=== PATIENT | female | born 1960 | race Caucasian/White ===

== ENCOUNTER 2021-01-31 08:25 | Outpatient (CLI) | payer OTHER, SELFPAY ==
--- NOTE | ~2021-01-31 | MM_ITS ---
EXAMINATION: MM screening sharifa BI w breezy HISTORY: Screening TECHNIQUE: Craniocaudal and mediolateral oblique 3-D tomosynthesis images were obtained and synthetic 2-D images were generated. CAD analysis was submitted and interpreted. COMPARISON: 10/02/2019 BREAST PARENCHYMAL COMPOSITION: The breasts are heterogeneously dense, which may obscure small masses . FINDINGS: There is no evidence of suspicious mass, calcification, or architectural distortion to sugg est malignancy in either breast. There has been no suspicious interval change. IMPRESSION: 1. No mammographic evidence of malignancy. 2. Recommend routine screening mammography in one year. BI-RADS Category 1: Negative Reviewed, dictated and finalized at location A.
[2021-01-31 08:43] LABS: Eosinophils Absolute Auto 0.09 K/mm3 (0.02-0.50); Eosinophils Percent Auto 1.9 % (1.0-6.0); Hematocrit 41.8 % (35.0-49.0); Hemoglobin 13.7 g/dL (12.0-15.0); Immature Granulocyte Absolute 0.01 K/mm3 (0.00-0.00); Immature Granulocyte Percent A 0.2 % (0.0-0.0); Lymphocytes Absolute Auto 1.63 K/mm3 (1.10-4.50); Lymphocytes Percent Auto 34.8 % (18.0-42.0); Mean Corpuscular HGB Conc 32.8 g/dL (32.0-36.0); Mean Corpuscular Hemoglobin 30.1 pg (27.0-31.0); Mean Corpuscular Volume 91.9 fL (78.0-102.0); Mean Platelet Volume 9.9 fl (9.2-11.8); Monocytes Absolute Auto 0.47 K/mm3 (0.10-0.90); Neutrophils Absolute Auto 2.5 K/mm3 (1.7-7.2); Neutrophils Percent Auto 53.1 % (50.0-70.0); Platelet Count Result 189 K/mm3 (150-420); Red Blood Count 4.55 M/mm3 (4.20-5.40); Red Cell Distribution Width 12.6 % (11.6-14.4); White Blood Count 4.7 K/mm3 (4.8-10.8)
[2021-01-31 08:59] LABS: Add Urine Microscopic? NO; Appearance Urine Clear (Clear); Bilirubin Urine Negative (Negative); Blood Urine Negative (Negative); Color Urine Yellow (Yellow); Glucose Urine UA Negative (Negative); Ketones Urine Negative (Negative); Leukocyte Esterase Ur Negative (Negative); Nitrate Urine Negative (Negative); Protein Urine Negative (Negative); Specific Grav Ur 1.025 (1.010-1.020); Urobilinogen Urine 0.2 mg/dL (0.2-1.0); pH Urine 5.5 (5.0-8.0)
[2021-01-31 09:20] LABS: Alanine Aminotransferase 34 U/L (14-59); Albumin Level 3.9 g/dL (3.4-5.0); Alkaline Phosphatase 75 U/L (46-116); Anion Gap 7 mmol/L (8-16); Aspartate Amino Transferase 36 U/L (15-37); Bilirubin,Total 0.6 mg/dL (0.00-1.00); Blood Urea Nitrogen 19 mg/dL (7-18); Calcium 8.6 mg/dL (8.5-10.1); Carbon Dioxide 31 mmol/L (21-32); Chloride 104 mmol/L (98-108); Cholesterol 183 mg/dL (0-200); Estimated Glomerular Filt Rate > 60; Glucose 90 mg/dL (70-99); HDL Direct 59 mg/dL (40-60); LDL Cholesterol Calculated 108 mg/dL (<130); Osmolality Calculated 296 mOsm/kg (285-295); Sodium 142 mmol/L (136-145); Thyroid Stimulating Hormone 0.99 uIU/mL (0.36-3.74); Total Protein 6.8 g/dL (6.4-8.2); Triglycerides 82 mg/dL (0-150)
[2021-02-02 11:58] LABS: Vitamin D 25 Hydroxy 51 ng/mL (30-100)
== END 2021-01-31 08:26 | disposition home or self-care (01) ==
LOC: CHSIMG 08:31
PROVIDERS: PCP Internal Medicine
DX: Z12.31 Encounter for screening mammogram for malignant neoplasm of breast (principal); Z00.00 Encounter for general adult medical examination without abnormal findings; E55.9 Vitamin D deficiency, unspecified
CPT/HCPCS: 36415; 77063; 77067; 80053; 80061; 81003; 82306; 84439; 84443; 85025

== ENCOUNTER 2021-02-16 08:23 | Outpatient (CLI) | payer OTHER, SELFPAY ==
--- NOTE | ~2021-02-16 | DEXA_ITS ---
Bone Density Report Name: Dianne Rodriguez Age: 60 Sex: Female Ethnicity: White Date of : 1960 Indication: postmenopausal; screening for osteoporosis; parental hip fracture; height loss; prior fracture; Referring Provider: Regine Mcconnell Study: Bone densitometry was performed. Exam Date: February 16, 2021 Accession number: [id number] Bone Density: Region BMD T-score Z-score Classification AP Spine(L1-L4) 0.790 -2.3 -1.0 Osteopenia Femoral Neck (Right) 0.636 -1.9 -0.7 Osteopenia Total Hip (Right) 0.774 -1.4 -0.5 Osteopenia World Health Organization criteria for BMD impression classify patients as: Normal (T-score at or above -1.0), Osteopenia (T-score between -1.0 and -2.5), or Osteoporosis (T-score at or below -2.5). 10-year Fracture Risk: FRAX not reported because: Prior hip or vertebral fracture Clinical Information Provided by Patient: Have had a previous hip or vertebral fracture Has had a low trauma fracture Parent has had a hip fracture Has used the following medications: Fosamax (i.e. alendronate), Vitamin D, Calcium Patient maximum height was 70 Menopause Age: 56 Drinks caffeinated beverages Onset of menses at age 16 Number of children 5 Impression: The patient has low bone mass, based on the Total Spine T-score. The patient has risk factors, including: parental hip fracture, previous fracture. Discussion: INCREASED RISK OF FRACTURE DUE TO HISTORY OF FRACTURE. The patient's previous fracture puts the patient at high risk of a future fracture. In untreated patients, the risk of osteoporotic fracture increases approximately two-fold for each 1.0 SD decrease in T-score. Low bone density is not the only risk factor for fracture; also consider factors such as patient's age, frailty or poor health, risk of falling, risk of injury, previous osteoporotic fracture, family history of osteoporosis, cigarette smoking, low body weight, etc. Not everyone with a low trauma fracture has osteoporosis; osteomalacia and other metabolic bone disorders should also be considered. Patients who have osteoporosis should be evaluated for specific diseases and conditions (secondary causes) that may cause or contribute to bone loss and fracture risk. National Osteoporosis Foundation (NOF) recommends pharmacologic intervention for patients with a prior hip or vertebral fracture regardless of BMD T-score. The patient should follow a healthful lifestyle (good nutrition with adequate calcium and vitamin D, and appropriate weight-bearing exercise). Follow-Up: Consider a repeat BMD and Vertebral Fracture Assessment (VFA) exam in 2 years or sooner if medically necessary, to reassess this patient's status. Reported by: Dr. Bryant Bergman on 02/16/2021 8:43:00 AM. Reviewed, dictated and finalized at location A. [facility]
== END 2021-02-16 08:24 | disposition home or self-care (01) ==
LOC: CHSIMG 08:24
PROVIDERS: PCP Internal Medicine; Visit Provider Internal Medicine
DX: M81.0 Age-related osteoporosis without current pathological fracture (principal)
CPT/HCPCS: 77080

== ENCOUNTER → 2021-02-20 00:26 | Outpatient (CLI) | payer OTHER, SELFPAY ==
[2021-02-20 19:28] LABS: SARS-CoV-2 RNA PCR Negative
== END ==
PROVIDERS: PCP Internal Medicine; Visit Provider Surgery
DX: Z01.812 Encounter for preprocedural laboratory examination (principal); Z20.822 Contact with and (suspected) exposure to COVID-19
CPT/HCPCS: C9803; U0003; U0005

== ENCOUNTER 2021-02-23 00:49 | Day surgery (SDC) | payer OTHER, SELFPAY ==
[2021-02-15 14:25] VITALS: BMI 20.5
[2021-02-23 08:07] VITALS: BP 116/75; PULSE 64; RESP 18; TEMP 37.1; O2SAT 99; BMI 20.2
[2021-02-23] MEDS: LACTATED RINGERS 1,000 ML 150 ML IV CONT (08:18)
--- NOTE | 2021-02-23 09:05 | WPDANESEPPF ---
Anes - Initial Pre Proc Eval Procedure: Operation Date: 02/23/21 09:00 Proposed Procedures p Screening Colonoscopy - Miguel Shane DO Date/Time: 02/23/21 09:05 Surgeon: Miguel Shane DO Pre Op Diagnosis: previous colon polyps Patient Data Age: 60 Gender: F Height: 5 ft 9 in Weight: 62 kg Last Vital Signs Temp 98.8 F 02/23/21 08:07 Pulse 64 02/23/21 08:07 Resp 18 02/23/21 08:07 BP 116/75 02/23/21 08:07 Pulse Ox 99 02/23/21 08:07 Allergies Allergy/AdvReac Type Severity Reaction Status Date / Time iodine Allergy Intermediate Rash Verified 02/23/21 08:05 Home Medications Medication Instructions Recorded Confirmed Type Vitamin C 750 mg PO DAILY 02/15/21 02/23/21 History brimonidine-timolol [Combigan] 1 drp EACH EYE BID 02/15/21 02/23/21 History cetirizine [Zyrtec] 10 mg PO DAILY 02/15/21 02/23/21 History flaxseed oil 2,000 mg PO DAILY 02/15/21 02/23/21 History gabapentin 300 mg PO HS 02/15/21 02/23/21 History qepmnsbm-dppo-hjb7-C-jaskaran-bosw 1 tablet PO DAILY 02/15/21 02/23/21 History [Osteo Bi-Flex Triple Strength] latanoprost 1 drp EACH EYE HS 02/15/21 02/23/21 History wjeepzpyfagf-snp-qijp-FA-vit K 1 tablet PO DAILY 02/15/21 02/23/21 History [One Daily Women's] Patient hx anesthesia problems: none Family hx anesthesia problems: none PMFSH Social History Social History Smoking status: Never smoker Alcohol intake: current Drinks per week: 1 Substance use: never Substance use type: does not use Living arrangements: with family Spiritual care concerns: No Anes - Eval Final PreProcedure Day of Procedure 02/23/21 09:05 Patient weight: normal Heart: regular rate and rhythm Lungs: clear to auscultation Airway: Mallampati scale class II Neurological: alert and oriented Last oral intake: >/= 8 hours ASA classification: II Emergent: no Anesthetic plan: proceed Anesthesia type and monitoring: general GIVS and standard monitoring Informed Consent: The patient's anesthetic plan and its attendant risks and benefits were discussed with the patient/family/POA. Questions were solicited and answers provided to the satisfaction of the patient/family/POA.
--- NOTE | 2021-02-23 09:24 | PM.IMHP ---
H&P: HPI History of Present Illness Date/Time: 02/23/21 09:24 Chief Complaint: history of colon polyps Narrative: this is a 60-year-old woman who presents for colonoscopy. Her last colonoscopy was 6-8 years ago and polyps were removed at that time. She denies any change in bowel habits or hematochezia or melena. She has no family history of colon cancer. Review of Systems Review of Systems: All systems reviewed & are unremarkable except as noted in HPI and below Constitutional: Constitutional: Denies chills, Denies fever(s), Denies headache(s) and Denies weight loss Eyes: Eyes: Denies change in vision ENT: Denies dizziness, Denies headache(s), Denies neck mass and Denies throat swelling Cardiovascular: Cardiovascular: Denies chest pain, Denies lightheadedness and Denies dyspnea Respiratory: Respiratory: Denies cough, Denies dyspnea and Denies wheezing Gastrointestinal: Gastrointestinal: Denies abdominal pain, Denies change in bowel habits, Denies nausea and Denies vomiting Genitourinary: Genitourinary: Denies hematuria and Denies dysuria Musculoskeletal: Musculoskeletal: Reports as per HPI Integumentary/Breasts: Skin/Breast: Reports as per HPI Neurologic: Denies dizziness and Denies headache(s) Allergic/Immunologic: Allergic/Immunologic: Denies throat swelling and Denies wheezing PMFSH Social History Social History Smoking status: Never smoker Alcohol intake: current Drinks per week: 1 Substance use: never Substance use type: does not use Living arrangements: with family Spiritual care concerns: No Meds Home Medications and Allergies Home Medications Medication Instructions Recorded Confirmed Type Vitamin C 750 mg PO DAILY 02/15/21 02/23/21 History brimonidine-timolol [Combigan] 1 drp EACH EYE BID 02/15/21 02/23/21 History cetirizine [Zyrtec] 10 mg PO DAILY 02/15/21 02/23/21 History flaxseed oil 2,000 mg PO DAILY 02/15/21 02/23/21 History gabapentin 300 mg PO HS 02/15/21 02/23/21 History qclrcsxo-vxfq-kwh1-C-jaskaran-bosw 1 tablet PO DAILY 02/15/21 02/23/21 History [Osteo Bi-Flex Triple Strength] latanoprost 1 drp EACH EYE HS 02/15/21 02/23/21 History olexltistiyu-zud-dasr-FA-vit K 1 tablet PO DAILY 02/15/21 02/23/21 History [One Daily Women's] Allergies Allergy/AdvReac Type Severity Reaction Status Date / Time iodine Allergy Intermediate Rash Verified 02/23/21 08:05 Vital Signs Vital Signs - 24 hr 02/23/21 08:07 Temperature 37.1 C Pulse Rate 64 Respiratory Rate 18 Blood Pressure 116/75 Pulse Oximetry 99 Exam Const: General: no acute distress and alert Orientation/consciousness: patient oriented x3 HENMT: Head: normocephalic and atraumatic Ears: hearing grossly normal bilaterally General nose exam: Normal nares present Mouth: Yes Normal oral and palatal mucosa present Eyes: Periorbital: periorbital findings normal Sclera: sclerae normal EOM: EOMs intact bilaterally Neck: Neck: normal visual inspection, no lymphadenopathy and trachea midline Chest: Chest palpation & inspection: normal inspection of the chest Resp: Effort & Inspection: normal respiratory effort Auscultation: clear to auscultation bilaterally Cardio: Jugular venous distension: no JVD Rate: regular rate Rhythm: regular rhythm Heart sounds: S1 normal heart sound present and S2 normal heart sound present Peripheral pulses: Peripheral pulses 2+ throughout GI: Inspection: normal to inspection GI Palp: Yes Soft to palpation, No Tenderness to palpation present (GI), No Guarding due to palpation present (GI) and No Rebound tenderness present Percussion: Yes normal to percussion Auscultation: normal bowel sounds : General: Yes no CVA tenderness Back/Spine/Pelvis: Back: no CVA tenderness Neuro: General: patient oriented x3, no focal motor deficits and CN's II-XI intact bilaterally Cognition (Neuro): normal cognition Speech: normal speech Motor exam (neuro): 5/5 motor strength pre
[2021-02-23 09:58] VITALS: BP 103/71; PULSE 68; RESP 20; O2SAT 100
[2021-02-23 10:08] VITALS: BP 107/69; PULSE 58; RESP 18; O2SAT 98
[2021-02-23 10:18] VITALS: BP 113/71; PULSE 56; RESP 16; O2SAT 99
== END 2021-02-23 10:35 | disposition home or self-care (01) ==
PROVIDERS: PCP Internal Medicine; Visit Provider Surgery
PROC: 0DJD8ZZ Inspection of Lower Intestinal Tract, Via Natural or Artificial Opening Endoscopic (ICD-10-PCS; CPT 45378; principal; 2021-02-23 09:00)
DX: Z12.11 Encounter for screening for malignant neoplasm of colon (principal); Z86.010 Personal history of colon polyps
CPT/HCPCS: 45378; J2704; J7120

== ENCOUNTER 2021-11-13 09:47 | Outpatient (CLI) | payer OTHER, SELFPAY ==
--- NOTE | ~2021-11-13 | XR_ITS ---
EXAMINATION: XR heel LT min 2V DATE: 11/13/2021 10:05 INDICATION: Left heel injury and pain. TECHNIQUE: 2 views of left calcaneus were obtained. COMPARISON: None. FINDINGS: Bone alignment is normal. No fracture. Joint spaces are normal. There are enthesophytes at the posterior and plantar aspects of calcaneal tuberosity. IMPRESSION: 1. No fracture. Reviewed, dictated and finalized at location A. [facility] IMPRESSION: 1. No fracture.
== END 2021-11-13 09:48 | disposition home or self-care (01) ==
LOC: CHSIMG 09:48
PROVIDERS: PCP Internal Medicine; Visit Provider Internal Medicine
DX: M79.672 Pain in left foot (principal)
CPT/HCPCS: 73650

== ENCOUNTER 2021-11-20 08:21 | Outpatient (CLI) | payer OTHER, SELFPAY ==
--- NOTE | ~2021-11-20 | XR_ITS ---
XR foot LT min 3V DATE: 11/20/2021 08:52 INDICATION: Left foot pain. No known injury TECHNIQUE: 4 standing views COMPARISON: None FINDINGS: There is chronic deformity of the tuft of the distal phalanx of the great toe, possibly due to remote injury. No fracture or dislocation, periosteal reaction or bone destruction is detected. Plantar calcaneal enthesopathy; no associated periostitis or erosive change. IMPRESSION: Plantar calcaneal enthesopathy Reviewed, dictated and finalized at location A. [facility]
== END 2021-11-20 08:22 | disposition home or self-care (01) ==
LOC: CHSIMG 08:23
PROVIDERS: PCP Internal Medicine; Visit Provider Orthopaedic Surgery
DX: M79.672 Pain in left foot (principal)
CPT/HCPCS: 73630

== ENCOUNTER 2022-03-23 08:25 | Outpatient (CLI) | payer OTHER, SELFPAY ==
--- NOTE | ~2022-03-23 | MM_ITS ---
EXAMINATION: MM screening sharifa BI w breezy HISTORY: Screening mammogram TECHNIQUE: Craniocaudal and mediolateral oblique 3-D tomosynthesis images were obtained and synthetic 2-D images were generated. CAD analysis was submitted and interpreted. COMPARISON: 01/31/2021, 10/02/2019 bilateral screening mammogram examinations BREAST PARENCHYMAL COMPOSITION: The breasts are heterogeneously dense, which may obscure small masses . FINDINGS: There is no evidence of suspicious mass, calcification, or architectural distortion to sugg est malignancy in either breast. There has been no suspicious interval change. IMPRESSION: 1. No mammographic evidence of malignancy. 2. Recommend routine screening mammography in one year. BI-RADS Category 1: Negative Reviewed, dictated and finalized at location A.
== END 2022-03-23 08:26 | disposition home or self-care (01) ==
LOC: CHSIMG 08:28
PROVIDERS: PCP Internal Medicine
DX: Z12.31 Encounter for screening mammogram for malignant neoplasm of breast (principal)
CPT/HCPCS: 77063; 77067

== ENCOUNTER 2023-02-13 07:44 | Outpatient (CLI) | payer OTHER, SELFPAY ==
--- NOTE | ~2023-02-13 | US_ITS ---
Limited Abdominal Sonogram: Real-time sonographic imaging of the right upper quadrant was performed. Clinical History: Hepatic cyst COMPARISON: 10/02/2019 Findings: There is a 2.6 x 2.0 x 2.6 cm subtle hyperechoic mass in the right hepatic lobe. No other h epatic abnormality seen. Main portal vein demonstrates normal direction of flow. The gallbladder is w ell distended, and appears normal with no evidence of gallstone or wall thickening. The common bile d uct measures 5 mm. The visualized pancreas, aorta, and IVC are unremarkable. Impression: 2.6 cm subtle hypoechoic mass in the right hepatic lobe. More simple appearing cyst seen on prior ult rasound is no longer visualized. This lesion is indeterminate. Pre and postcontrast MR recommended to further evaluate. Reviewed, dictated and finalized at [facility]. Impression: 2.6 cm subtle hypoechoic mass in the right hepatic lobe. More simple appearing cyst seen on prior ultrasound is no longer visualized. This lesion is indetermi michael. Pre and postcontrast MR recommended to further evaluate.
== END 2023-02-13 07:45 | disposition home or self-care (01) ==
LOC: CHSIMG 07:46
PROVIDERS: PCP Internal Medicine; Visit Provider Internal Medicine
DX: K76.89 Other specified diseases of liver (principal)
CPT/HCPCS: 76705

== ENCOUNTER 2023-04-09 12:24 | Outpatient (CLI) | payer OTHER, SELFPAY ==
--- NOTE | ~2023-04-09 | DEXA_ITS ---
Bone Density Report Name: IVET UMAÑA Age: 62 Sex: Female Ethnicity: White Date of : 1960 Indication: postmenopausal; screening for osteoporosis; parental hip fracture; height loss; prior fracture; Referring Provider: Regine Mcconnell Study: Bone densitometry was performed. Exam Date: April 09, 2023 Accession number: [id number] Bone Density: Region BMD T-score Z-score Classification AP Spine(L1-L4) 0.784 -2.4 -0.9 Osteopenia Femoral Neck (Right) 0.595 -2.3 -0.9 Osteopenia Total Hip (Right) 0.758 -1.5 -0.5 Osteopenia World Health Organization criteria for BMD impression classify patients as: Normal (T-score at or above -1.0), Osteopenia (T-score between -1.0 and -2.5), or Osteoporosis (T-score at or below -2.5). 10-year Fracture Risk: FRAX not reported because: Prior hip or vertebral fracture Clinical Information Provided by Patient: Have had a previous hip or vertebral fracture Has had a low trauma fracture Parent has had a hip fracture Has used the following medications: Fosamax (i.e. alendronate), Vitamin D, Calcium Patient maximum height was 69 Menopause Age: 56 Drinks caffeinated beverages Onset of menses at age 16 Number of children 5 Impression: The patient has low bone mass, based on the Total Spine T-score. The patient has risk factors, including: parental hip fracture, previous fracture. Discussion: INCREASED RISK OF FRACTURE DUE TO HISTORY OF FRACTURE. The patient's previous fracture puts the patient at high risk of a future fracture. In untreated patients, the risk of osteoporotic fracture increases approximately two-fold for each 1.0 SD decrease in T-score. Low bone density is not the only risk factor for fracture; also consider factors such as patient's age, frailty or poor health, risk of falling, risk of injury, previous osteoporotic fracture, family history of osteoporosis, cigarette smoking, low body weight, etc. Not everyone with a low trauma fracture has osteoporosis; osteomalacia and other metabolic bone disorders should also be considered. Patients who have osteoporosis should be evaluated for specific diseases and conditions (secondary causes) that may cause or contribute to bone loss and fracture risk. National Osteoporosis Foundation (NOF) recommends pharmacologic intervention for patients with a prior hip or vertebral fracture regardless of BMD T-score. The patient should follow a healthful lifestyle (good nutrition with adequate calcium and vitamin D, and appropriate weight-bearing exercise). Follow-Up: Consider a repeat BMD and Vertebral Fracture Assessment (VFA) exam in 2 years or sooner if medically necessary, to reassess this patient's status. Reported by: Dr. Bryant Bergman on 04/09/2023 1:02:00 PM. Reviewed, dictated and finalized at location A.
--- NOTE | ~2023-04-09 | MM_ITS ---
EXAMINATION: MM screening [facility] BI w breezy HISTORY: Screening mammogram TECHNIQUE: Craniocaudal and mediolateral oblique 3-D tomosynthesis images were obtained and synthetic 2-D images were generated. CAD analysis was submitted and interpreted. COMPARISON: 03/23/2022, 01/31/2021, 10/02/2019 BREAST PARENCHYMAL COMPOSITION: The breasts are heterogeneously dense, which may obscure small masses . FINDINGS: No suspicious mass, calcification, or architectural distortion are identified in either luis enrique ast to suggest malignancy. There has been no suspicious interval change. IMPRESSION: 1. No mammographic evidence of malignancy. 2. Recommend routine screening mammography in one year. BI-RADS Category 1: Negative Reviewed, dictated and finalized at location A.
== END 2023-04-09 12:25 | disposition home or self-care (01) ==
LOC: CHSIMG 12:26
PROVIDERS: PCP Internal Medicine; Visit Provider Internal Medicine
DX: Z12.31 Encounter for screening mammogram for malignant neoplasm of breast (principal); Z78.0 Asymptomatic menopausal state; M85.89 Other specified disorders of bone density and structure, multiple sites
CPT/HCPCS: 77063; 77067; 77080

== ENCOUNTER 2023-05-07 08:25 | Outpatient (CLI) | payer OTHER, SELFPAY ==
[2023-05-07] MEDS: ZOLEDRONIC ACID 5 MG/100 ML 100 ML 400 MG IVPB (08:35)
[2023-05-07 08:43] VITALS: BP 105/65; PULSE 80; RESP 14; TEMP 36.8; O2SAT 98
[2023-05-07 08:44] VITALS: BMI 20.8
--- NOTE | 2023-05-07 08:50 | PC.NURSE ---
Patient here for IV Reclast. Education given. All concerns answered. IV Reclast administered. SEE MAR. Tolerated well. Safe exit of hospital per ambulatory/self.
== END 2023-05-07 08:26 | disposition home or self-care (01) ==
LOC: CHSTREATRM 08:27
PROVIDERS: PCP Internal Medicine; Visit Provider Internal Medicine
DX: M81.0 Age-related osteoporosis without current pathological fracture (principal)
CPT/HCPCS: 96374; J3489

== ENCOUNTER 2023-06-12 11:37 | Outpatient (CLI) | payer OTHER, SELFPAY ==
--- NOTE | ~2023-06-12 | XR_ITS ---
Lumbosacral Spine: AP and lateral views Clinical History: Pain Findings: The normal lordotic curve is maintained. The vertebral bodies and posterior elements are i ntact. The intervertebral disc spaces are preserved. There is moderate facet arthropathy at and L3-L 4, L4-L5, L5-S1. The sacroiliac joints are normally outlined. Impression: Facet arthropathy at the lower lumbar spine, as detailed above. Reviewed, dictated and finalized at location M. Impression: Facet arthropathy at the lower lumbar spine, as detailed above.
--- NOTE | ~2023-06-12 | XR_ITS ---
AP view of the pelvis and AP and lateral views of the lateral hips Clinical history: Pain Findings: There are fractures of the left superior and inferior pubic rami. 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 No hardware convocation evident. Right hip joint and SI joints are intact. Soft tissues are un remarkable. Impression: Fractures of the left superior and inferior pubic rami. 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 Reviewed, dictated and finalized at location . Impression: Fractures of the left superior and inferior pubic rami. 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
--- NOTE | ~2023-06-12 | US_ITS ---
EXAMINATION: US venous doppler LE RT DATE: 06/12/2023 12:27 INDICATION: Right lower limb swelling TECHNIQUE: Grayscale ultrasound images without and with compression and Doppler ultrasound images of the right lower extremity veins were obtained. COMPARISON: None. FINDINGS: The visualized portions of right common femoral vein, profunda (deep) femoral vein, femoral vein, pop liteal vein, peroneal trunk, posterior tibial veins, peroneal veins, gastrocnemius vein and greater s aphenous vein outflow are patent. IMPRESSION: 1. No deep venous thrombosis in the right lower limb. Reviewed, dictated and finalized at location A.
== END 2023-06-12 11:38 | disposition home or self-care (01) ==
LOC: CHSIMG 11:40
PROVIDERS: PCP Internal Medicine; Visit Provider Internal Medicine
DX: S79.912A Unspecified injury of left hip, initial encounter (principal); M79.89 Other specified soft tissue disorders; M12.88 Other specific arthropathies, not elsewhere classified, other specified site; S32.592A Other specified fracture of left pubis, initial encounter for closed fracture; Z96.642 Presence of left artificial hip joint
CPT/HCPCS: 72100; 73521; 93971

== ENCOUNTER 2023-08-02 13:56 | Outpatient (CLI) | payer OTHER, SELFPAY ==
[2023-08-08 12:33] LABS: Vitamin D 25 Hydroxy 52 ng/mL (30-100)
== END 2023-08-02 13:57 | disposition home or self-care (01) ==
LOC: CHSLAB 13:57
PROVIDERS: PCP Internal Medicine; Visit Provider Orthopaedic Surgery
DX: E55.9 Vitamin D deficiency, unspecified (principal)
CPT/HCPCS: 36415; 82306

== ENCOUNTER 2023-10-18 07:59 | Outpatient (RCR) | payer OTHER, SELFPAY ==
--- NOTE | 2023-10-18 08:56 | OPREHPOC ---
Outpatient Therapy Plan of Care This is a Multidisciplinary Plan of Care that may contain components documented by all disciplines (PT, OT, and ST.) PT Problem 1 PT Problem #1 Knowledge Deficit PT Goal 1 Goal 1. independent and compliant with HEP Target Visit 4 PT Problem 2 PT Problem #2 Pain PT Goal 1 Goal 1. pain to decrease to 4/10 or less in the last week Target Visit 8 PT Problem 3 PT Problem #3 Impaired Strength PT Goal 1 Goal 1. 3/5 or better L hip strength 2. 3+/5 or better R hip strength 3. 4+/5 or better bilateral ankle DF 4. 4+/5 or better L knee strength Target Visit 8 PT Problem 4 PT Problem #4 Impaired Gait PT Goal 1 Goal 1. patient to ambulate with step through mechanics of the bilateral LE's with equal step/stride length and heel contact using cane. 2. patient to ambulate up steps reciprocally with 1 hand rail. Target Visit 8
--- NOTE | 2023-10-18 08:56 | PTOPEVAL1 ---
Assessment and note entered by JT File, PT Evaluation Information Assessment Status Evaluation Diagnosis L pubic ramus fracture Onset 06/09/23 Subjective Information patient reports she fell and fractured the pelvis on 06/09/23. she reports last week she was released to begin therapy, and was able to get rid of her walker. she reports this is her first week with the cane. she reports her fracture was in 4 places, and she had difficulty healing. she reports she has difficulty getting in and out of bed, rolling over in bed, getting in and out of a car, and walking. she reports she will be struggling to stand/walk by the afternoon/evening. she reports prior to her fall she was able to run on a treadmill, ride a bike, go to the the gym. she reports she would like to get back to as many of her prior level activities as before her fall. she reports she is retired. Reported Pain Level Pain Score 0: Self Report Assessment PT Clinical Summary mrs. whitehead is a 63 yo woman who presents to skilled PT for rehab following fall and fracture of the L pubic ramus. she presents today with deficits in strength (especially the L hip), abnormal gait mechanics, and deficits in endurance with functional activities. she would benefit from continued skilled PT to improve her objective /functional deficits and progress towards return to independent walking and other functional activities. Plan of Care Interventions Gait Training,Neuro Re-education,Patient/Caregiver Educati,Therapeutic Activities,Therapeutic Exercise PT Services Indicated Yes Treatment Frequency and 2x weekly for 8 visits Duration These treatments will address the objective and functional deficits as defined above. The patient will be advanced safely and appropriately in order for the patient to progress towards his/her prior level of function. Additional exercises will be introduced and as well as a comprehensive home exercise program upon discharge, if needed, ?to ensure carryover of functional gains achieved in the clinic. This treatment plan has been reviewed and agreement upon by the patient.
--- NOTE | 2023-11-14 11:03 | OPREHPOC ---
Outpatient Therapy Plan of Care This is a Multidisciplinary Plan of Care that may contain components documented by all disciplines (PT, OT, and ST.) PT Problem 1 PT Problem #1 Knowledge Deficit PT Goal 1 Goal 1. independent and compliant with HEP Target Visit 4 Progress Met PT Problem 2 PT Problem #2 Pain PT Goal 1 Goal 1. pain to decrease to 4/10 or less in the last week Target Visit 16 Progress Not Met Comment continue PT Problem 3 PT Problem #3 Impaired Strength PT Goal 1 Goal 1. 3/5 or better L hip strength 2. 3+/5 or better R hip strength 3. 4+/5 or better bilateral ankle DF 4. 4+/5 or better L knee strength Target Visit 16 Progress Partially Met Comment continue PT Problem 4 PT Problem #4 Impaired Gait PT Goal 1 Goal 1. patient to ambulate with step through mechanics of the bilateral LE's with equal step/stride length and heel contact using cane. 2. patient to ambulate up steps reciprocally with 1 hand rail. 3. patient to ambulate 600ft or more in 6 minute walk test with rest Target Visit 16 Progress Partially Met Comment continue
--- NOTE | 2023-11-14 11:04 | PTOPREEVAL ---
Assessment and note entered by JT File, PT Evaluation Information Assessment Status Re-evaluation Diagnosis L pubic ramus fracture Onset 06/09/23 Subjective Information patient reports she feels Good today. she reports she has no pain in the L hip/pelvis today. she reports she has seen the MD who thinks the fracutred has completed its heeling. she arrives to therapy with orders from her MD to continue PT for strengthening and cane use for ambulation. she reports over the weekend her pain was flared up from being up on her feet and active with the holidays. Reported Pain Level Pain Score 0: Self Report Assessment PT Clinical Summary mrs. whitehead presents to skilled PT for her 8th skilled PT visit for weakness following L pubic ramus fracture. during her time in therapy she has work on exercises/activities to increased LE strength and ambulation endurance/mechanics. she displays improved LE strength from initial evaluation, but continued weakness overall of the bilateral LE and core. she would benefit from continued skilled PT to further improve/progress her LE strength, core strength, and ambulation mechanics/endurance. Plan of Care Interventions Gait Training,Neuro Re-education,Patient/Caregiver Educati,Therapeutic Activities,Therapeutic Exercise PT Services Indicated Yes Treatment Frequency and continue skilled PT 2x weekly for 8 more visits Duration These treatments will address the objective and functional deficits as defined above. The patient will be advanced safely and appropriately in order for the patient to progress towards his/her prior level of function. Additional exercises will be introduced and as well as a comprehensive home exercise program upon discharge, if needed, ?to ensure carryover of functional gains achieved in the clinic. This treatment plan has been reviewed and agreement upon by the patient.
--- NOTE | 2023-12-09 08:57 | PCPTNOTE ---
Mrs. Rodriguez cancelled her appointment on this date due to inclement weather. Faustino Pond, MPT
--- NOTE | 2023-12-11 10:32 | OPREHPOC ---
Outpatient Therapy Plan of Care This is a Multidisciplinary Plan of Care that may contain components documented by all disciplines (PT, OT, and ST.) PT Problem 1 PT Problem #1 Knowledge Deficit PT Goal 1 Goal 1. independent and compliant with HEP Target Visit 4 Progress Met PT Problem 2 PT Problem #2 Pain PT Goal 1 Goal 1. pain to decrease to 4/10 or less in the last week Target Visit 20 Progress Not Met Comment continue PT Problem 3 PT Problem #3 Impaired Strength PT Goal 1 Goal 1. 3/5 or better L hip strength. met 2. 3+/5 or better R hip strength. met 3. 4+/5 or better bilateral ankle DF. met 4. 4+/5 or better L knee strength. met Target Visit 16 Progress Met Comment . PT Goal 2 Goal 1. 4/5 bilateral hip strength overall 2. 5/5 bilateral knee strength overall 3. 5/5 bilateral ankle strength overall Target Visit 20 PT Problem 4 PT Problem #4 Impaired Gait PT Goal 1 Goal 1. patient to ambulate with step through mechanics of the bilateral LE's with equal step/stride length and heel contact using cane. met 2. patient to ambulate up steps reciprocally with 1 hand rail. met 3. patient to ambulate 600ft or more in 6 minute walk test with rest. met Target Visit 16 Progress Met Comment . PT Goal 2 Goal 1. patient to ambulate 900ft or more in 6m inute walk test Target Visit 20 PT Problem 5 PT Problem #5 Impaired Functional Mobil PT Goal 1 Goal 1. LEFS to display less than 30% functional decline Target Visit 20
--- NOTE | 2023-12-11 10:32 | PTOPREEVAL ---
Assessment and note entered by JT File, PT Evaluation Information Assessment Status Re-evaluation Diagnosis L pubic ramus fracture Onset 06/09/23 Subjective Information patient reports she feels good today. however, she still gets increased pain in the pelvis with increased standing and walking. she reports she went to [facility] the other day and her pain did reach a 7/10. she reports she returns to the MD for follow up this saturday. Reported Pain Level Pain Score 2: Self Report Assessment PT Clinical Summary mrs. whitehead presents to skilled PT for her 15th skilled therapy visit this date. she displays progress towards and achievement of several goals for skilled PT this date. she continues to have pain in the pelvis with increased activities of standing/walking longer times/distances. she would benefit from continued skilled PT to address her remaining strength and endurance deficits to return to prior level functional activities and quality of life. Plan of Care Interventions Gait Training,Neuro Re-education,Patient/Caregiver Educati,Therapeutic Activities,Therapeutic Exercise PT Services Indicated Yes Treatment Frequency and continue skilled PT for 1 more visits on current Duration poc, and then 1x weekly for 4 more visits (5 total additional visits from today). These treatments will address the objective and functional deficits as defined above. The patient will be advanced safely and appropriately in order for the patient to progress towards his/her prior level of function. Additional exercises will be introduced and as well as a comprehensive home exercise program upon discharge, if needed, ?to ensure carryover of functional gains achieved in the clinic. This treatment plan has been reviewed and agreement upon by the patient.
--- NOTE | 2024-01-07 09:19 | OPREHPOC ---
Outpatient Therapy Plan of Care This is a Multidisciplinary Plan of Care that may contain components documented by all disciplines (PT, OT, and ST.) PT Problem 1 PT Problem #1 Knowledge Deficit PT Goal 1 Goal 1. independent and compliant with HEP Target Visit 4 Progress Met PT Problem 2 PT Problem #2 Pain PT Goal 1 Goal 1. pain to decrease to 4/10 or less in the last week Target Visit 20 Progress Not Met Comment 5/10 PT Problem 3 PT Problem #3 Impaired Strength PT Goal 1 Goal 1. 3/5 or better L hip strength. met 2. 3+/5 or better R hip strength. met 3. 4+/5 or better bilateral ankle DF. met 4. 4+/5 or better L knee strength. met Target Visit 16 Progress Met Comment . PT Goal 2 Goal 1. 4/5 bilateral hip strength overall 2. 5/5 bilateral knee strength overall 3. 5/5 bilateral ankle strength overall Target Visit 20 Progress Met PT Problem 4 PT Problem #4 Impaired Gait PT Goal 1 Goal 1. patient to ambulate with step through mechanics of the bilateral LE's with equal step/stride length and heel contact using cane. met 2. patient to ambulate up steps reciprocally with 1 hand rail. met 3. patient to ambulate 600ft or more in 6 minute walk test with rest. met Target Visit 16 Progress Met Comment . PT Goal 2 Goal 1. patient to ambulate 900ft or more in 6 minute walk test Target Visit 20 PT Problem 5 PT Problem #5 Impaired Functional Mobil PT Goal 1 Goal 1. LEFS to display less than 30% functional decline Target Visit 20 Progress Not Met
--- NOTE | 2024-01-07 09:19 | PTOPDC ---
Assessment and note entered by Debby Hazel DPT Evaluation Information Assessment Status Discharge Diagnosis L pubic ramus fracture Onset 06/09/23 Subjective Information patient reports she has improved a lot since start of PT. She reports she is no longer using an AD. she reports she is able to ambulate longer distances but still has onset of pain with longer distances. she reports she has been released by the MD and is independent with HEP Reported Pain Level Pain Score 1: Self Report Assessment PT Clinical Summary Mrs. Rodriguez has been seen for 20 visits of skilled PT with good progress towards goals. She met goals for strength, 6 min walk, stair navigation, and gait mechanics but did not meet goal for pain. She reports with prolonged activity her pain levels can increase up to 5/10 but this continues to improve. She reports she is independent with HEP and has returned to all daily activities. She is appropriate for DC at this time. Plan of Care PT Services Indicated No
== END 2024-01-07 09:27 | disposition home or self-care (01) ==
LOC: CHSPT 07:59
PROVIDERS: Visit Provider Orthopaedic Surgery
DX: Z48.89 Encounter for other specified surgical aftercare (principal); R26.9 Unspecified abnormalities of gait and mobility; M62.81 Muscle weakness (generalized)
CPT/HCPCS: 97110; 97112; 97150; 97161

== ENCOUNTER 2024-02-29 09:57 | Outpatient (CLI) | payer OTHER, SELFPAY ==
[2024-02-29 10:20] LABS: Appearance Urine Clear (Clear); Bilirubin Urine Negative (Negative); Blood Urine Negative (Negative); Color Urine Light Yellow (Yellow); Eosinophils Absolute Auto 0.07 K/mm3 (0.02-0.50); Eosinophils Percent Auto 1.3 % (1.0-6.0); Glucose Urine UA Negative (Negative); Hematocrit 44.3 % (35.0-49.0); Hemoglobin 14.9 g/dL (12.0-15.0); Immature Granulocyte Absolute 0.02 K/mm3 (0.00-0.00); Immature Granulocyte Percent A 0.4 % (0.0-0.0); Ketones Urine Negative (Negative); Leukocyte Esterase Ur Trace LEU/UL (Negative); Lymphocytes Absolute Auto 1.68 K/mm3 (1.10-4.50); Lymphocytes Percent Auto 32.2 % (18.0-42.0); Mean Corpuscular HGB Conc 33.6 g/dL (32-36); Mean Corpuscular Hemoglobin 30.8 pg (27.0-31.0); Mean Corpuscular Volume 91.7 fL (78.0-102.0); Mean Platelet Volume 9.3 fl (9.2-11.8); Monocytes Percent Auto 7.7 % (2.0-11.0); Neutrophils Absolute Auto 3.05 K/mm3 (1.70-7.20); Neutrophils Percent Auto 58.4 % (50.0-70.0); Nitrate Urine Negative (Negative); Platelet Count Result 226 K/mm3 (150-420); Protein Urine Negative (Negative); Red Blood Count 4.83 M/mm3 (4.20-5.40); Red Cell Distribution Width 12.4 % (11.6-14.4); Specific Grav Ur 1.015 (1.010-1.020); Urobilinogen Urine 0.2 mg/dL (0.2-1.0); White Blood Count 5.2 K/mm3 (4.8-10.8); pH Urine 7.5 (5.0-8.0)
[2024-02-29 10:26] LABS: Add Urine Microscopic? YES; RBC Urine None seen /hpf (0-2); Squamous Epithelial Cell Urine Rare /hpf (Few); WBC Urine 0-3 /hpf (0-3)
[2024-02-29 10:27] LABS: Bacteria Urine 1+ /hpf
[2024-02-29 11:10] LABS: Alanine Aminotransferase 30 U/L (14-59); Albumin Level 4.2 g/dL (3.4-5.0); Alkaline Phosphatase 54 U/L (46-116); Anion Gap 8 mmol/L (4-12); Aspartate Amino Transferase 24 U/L (15-37); Bilirubin,Total 0.5 mg/dL (0.00-1.00); Blood Urea Nitrogen 12 mg/dL (7-18); Calcium 8.7 mg/dL (8.5-10.1); Carbon Dioxide 31 mmol/L (21-32); Chloride 107 mmol/L (98-108); Cholesterol 218 mg/dL (0-200); Estimated Glomerular Filt Rate > 60; Free T3 2.72 pg/mL (2.18-3.98); Glucose 73 mg/dL (70-99); HDL Direct 68 mg/dL (40-60); LDL Cholesterol Calculated 138 mg/dL (<130); Osmolality Calculated 300 mOsm/kg (285-295); Potassium 4.3 mmol/L (3.5-5.1); Sodium 146 mmol/L (136-145); Thyroid Stimulating Hormone 0.61 uIU/mL (0.36-3.74); Triglycerides 60 mg/dL (0-150)
[2024-03-01 08:30] LABS: Vitamin D 25 Hydroxy 66 ng/mL (30-100)
== END 2024-02-29 09:58 | disposition home or self-care (01) ==
LOC: CHSLAB 09:59
PROVIDERS: PCP Internal Medicine; Visit Provider Internal Medicine
DX: Z00.00 Encounter for general adult medical examination without abnormal findings (principal); N39.0 Urinary tract infection, site not specified; M81.0 Age-related osteoporosis without current pathological fracture
CPT/HCPCS: 36415; 80053; 80061; 81001; 82306; 84439; 84443; 84481; 85025

== ENCOUNTER 2024-03-17 15:31 | Outpatient (CLI) | payer OTHER, SELFPAY | END 2024-03-17 15:32 | disposition home or self-care (01) | LOC: CHSLAB 15:33 | PROVIDERS: PCP Internal Medicine; Visit Provider Specialist | DX: L57.0 Actinic keratosis (principal) | CPT/HCPCS: 88305 ==

== ENCOUNTER 2024-04-14 13:22 | Outpatient (CLI) | payer OTHER, SELFPAY ==
--- NOTE | ~2024-04-14 | MM_ITS ---
EXAMINATION: MM screening [facility] BI w breezy HISTORY: Screening TECHNIQUE: Craniocaudal and mediolateral oblique 3-D tomosynthesis images were obtained and synthetic 2-D images were generated. CAD analysis was submitted and interpreted. COMPARISON: Comparison to multiple prior studies sequentially, with oldest reviewed study dated 09/18. BREAST PARENCHYMAL COMPOSITION: There are scattered areas of fibroglandular density. FINDINGS: There is no evidence of suspicious mass, calcification, or architectural distortion to sugg est malignancy in either breast. There has been no suspicious interval change. IMPRESSION: 1. No mammographic evidence of malignancy. 2. Recommend routine screening mammography in one year. BI-RADS Category 1: Negative Reviewed, dictated and finalized at location B.
== END 2024-04-14 13:23 | disposition home or self-care (01) ==
LOC: CHSIMG 13:28
PROVIDERS: PCP Internal Medicine
DX: Z12.31 Encounter for screening mammogram for malignant neoplasm of breast (principal)
CPT/HCPCS: 77063; 77067

== ENCOUNTER 2024-04-17 07:48 | Outpatient (CLI) | payer OTHER, SELFPAY ==
--- NOTE | ~2024-04-17 | DEXA_ITS ---
? Bone Density Report? Name:? IVET UMAÑA Patient ID:??? [id number] Age:? 63 Sex:? Female Ethnicity:? White Date of : 1960 Indication: postmenopausal; screening for osteoporosis; parental hip fracture; height loss; prior fracture; Referring Provider: Regine Mcconnell Study: Bone densitometry was performed. Exam Date: April 17, 2024 Accession number: [id number] Bone Density: Region? BMD??? T-score? Z-score?? Classification AP Spine(L1-L4)? 0.831?? -2.0? -0.4? Osteopenia Femoral Neck (Right)? 0.548?? -2.7? -1.3? Osteoporosis Total Hip (Right)?0.756?? -1.5? -0.4? Osteopenia World Health Organization criteria for BMD impression classify patients as: Normal (T-score at or above -1.0), Osteopenia (T-score between -1.0 and -2.5), or Osteoporosis (T-score at or below -2.5). 10-year Fracture Risk: FRAX not reported because: ? Some T-score for Spine Total or Hip Total or Femoral Neck at or below -2.5 ? Prior hip or vertebral fracture ? Treated for osteoporosis Clinical Information Provided by Patient: Have had a previous hip or vertebral fracture Has had a low trauma fracture Parent has had a hip fracture Is being treated for osteoporosis Has used the following medications: Fosamax (i.e. alendronate), Vitamin D, Calcium Patient maximum height was 69 Menopause Age: 56 Drinks caffeinated beverages Onset of menses at age 16 Number of children 5 Impression: The patient has established osteoporosis, based on the Right Femoral Neck T-score and the existence of a prior fracture. The patient has risk factors, including: parental hip fracture, previous fracture. Discussion: It is important to ask patients whether they are taking their medications and to encourage continued and appropriate compliance with their osteoporosis therapies to reduce fracture risk. It is also important to review their risk factors and encourage appropriate calcium and vitamin D intakes, exercise, fall prevention and other lifestyle measures. Follow-Up: Consider a repeat BMD and Vertebral Fracture Assessment (VFA) exam in 2 years or sooner if medically necessary, to reassess this patient's status. Reported by: Dr. Gage Hoover on 04/17/2024 3:33:00 PM. VASU
== END 2024-04-17 07:49 | disposition home or self-care (01) ==
LOC: CHSIMG 07:49
PROVIDERS: PCP Internal Medicine; Visit Provider Internal Medicine
DX: M81.0 Age-related osteoporosis without current pathological fracture (principal); M85.89 Other specified disorders of bone density and structure, multiple sites
CPT/HCPCS: 77080

== ENCOUNTER 2024-06-16 08:26 | Outpatient (CLI) | payer OTHER, SELFPAY ==
[2024-06-16 08:39] VITALS: BP 120/68; PULSE 60; RESP 14; TEMP 36.6; O2SAT 100; BMI 20.8
[2024-06-16] MEDS: ZOLEDRONIC ACID 5 MG/100 ML 100 ML 400 MG IVPB (08:44)
[2024-06-16 09:16] VITALS: BP 119/63; PULSE 64; RESP 14
--- NOTE | 2024-06-16 09:17 | PC.NURSE ---
Patient here for yearly IV Reclast. Education given. No concerns voiced. Reports no problems with this last year. IV Reclast administered. see MAR/patient care notes. Tolerated well.
== END 2024-06-16 08:27 | disposition home or self-care (01) ==
PROVIDERS: PCP Internal Medicine; Visit Provider Internal Medicine
DX: M81.0 Age-related osteoporosis without current pathological fracture (principal)
CPT/HCPCS: 96374; J3489

== ENCOUNTER 2025-05-18 08:26 | Outpatient (CLI) | payer OTHER, SELFPAY ==
--- NOTE | ~2025-05-18 | MM_ITS ---
EXAMINATION: MM screening sharifa BI w breezy HISTORY: Screening mammogram TECHNIQUE: Craniocaudal and mediolateral oblique 3-D tomosynthesis images were obtained and synthetic 2-D images were generated. CAD analysis was submitted and interpreted. COMPARISON: 04/14/2024, 04/09/2023, 03/23/2022 BREAST PARENCHYMAL COMPOSITION:Dense: The breasts are heterogeneously dense, which may obscure small masses. FINDINGS: No suspicious mass, calcification, or architectural distortion are identified in either luis enrique ast to suggest malignancy. There has been no suspicious interval change. IMPRESSION: No mammographic evidence of malignancy. Recommend routine screening mammography in one year. BI-RADS Category 1: Negative Reviewed, dictated and finalized at location .
--- OUTSIDE RECORDS SUMMARY | 2025-05-18 08:33 | XMS_ITS | Encounter Summary ---
Author Organization [facility] Address [facility] [place] [address] Care Team Providers Care Auricular Detoxification Specialist Name Role Phone Regine Mcconnell MD Primary Care Provider [phone] Encounter Details Date Type Department Care Team (Late st Contact Info) Description 02/01/2018 Abstract [facility] CONVERSION [address] [place] [address] , Generic Conversion, Social History Tobacco Use Types Packs/Day Years Used Date Smoking Tobacco: Never Assessed Comments Unknown Sex and Gender Information Value Date Recorded Sex Assigned at Not on file Legal 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
--- OUTSIDE RECORDS SUMMARY | 2025-05-18 08:33 | XMS_ITS | Data Portability ---
Author Organization [facility], [address] [facility] ([place]) Address [address]th [place] [address] Care Team Providers Care Executive Account Manager Name Role Phone MARY VALDEZ Primary Care Provider Assessment Encounter Date Assessment Date Assessment LastModified by Organization Details LastModified Time 04/08/2024 04/08/2024 DISCUSSION: Pap smear guidelines discussed. Self-breast exam instructions reviewed. STD prevention discussed. Healthy diet and exercise were encouraged. Mammogram screening recommended and order given. Encouraged patient to remain up to date with colonoscopy screening. Bone health discussed. Encouraged calcium and vitamin D supplementation . Postmenopausal bleeding precautions were given. PLAN: Patient to return to clinic in one year for annual or sooner if any issues. All questions were answered. Mammogram pending. DEXA per Prolia prescribing physician. [email or web address] Not available 04/15/2024 07:31:01 04/21/2025 04/21/2025 DISCUSSION: Pap smear guidelines discussed. Self-breast exam instructions reviewed. STD prevention discussed. Healthy diet and exercise were encouraged. Mammogram screening recommended and order given. Encouraged patient to remain up to date with colonoscopy screening. Bone health discussed. Encouraged calcium and vitamin D supplementation . Postmenopausal bleeding precautions were given. PLAN: Patient to return to clinic in one year for annual or sooner if any issues. All questions were answered. ils lsines Not available 04/29/2025 13:15:31 Plan of Treatment Reminders Order Date Submit Date Provider Last Modified By Organization Details Last Modified Time Details Appointments New Patient Visit 15.NEW 2024 10:45A M Dr. Lauro Ho Not available Not available Not available Annual Well Woman Visit 15.EST 2025 10:30A M Dr. Komal Priest Not available Not available Not available Lab None recorded. Referral None recorded. Procedures None recorded. Surgeries None recorded. Imaging MAMMO, screening , digital, bilateral [address] [facility], [address] [place], [address], 05/05/2025 17:57:55 bone density 2024 025 [facility], [address] [place] [address], [address], 04/21/2025 15:27:19 MAMMO, screening , bilateral [address] [facility], [address] [place], [address], 05/04/2025 17:33:15 Medication Orders None recorded. Patient TargetsNo targets recorded. Patient InstructionsNo instructions recorded. Reason for Referral None Reported. Results Created Date Observation Date Name Description Value Unit Range Abnormal Flag Note LastModifiedBy Organization Detail LastModifiedTime 04/08/2004/09/2023 MAMMO , diagn ostic , tomos ynthe sis, bilat eral No observ ation record ed. [email or web address] [facility] [address] [place], [address], 04/10/2024 05:51:31 04/08/20 24 04/09/2023 bone densi ty No observ ation record ed. [email or web address] Not Available 2023 11:33:27 06/02/20 24 05/29/2023 imagi ng/di agnos tic resul t No observ ation record ed. [email or web address] Not Available 20:40:16 Result Notes None recorded. Procedures Surgical History Date Name Laterality Status Provider Name and Address Organization Details Recorded Time 04/09/20 Date of Last Mammogram completed Not Available Health Note 04/03/2024 15:32:52 04/09/20 23 Most Recent Bone Density completed [facility] 04/08/2024 08:02:29 04/01/20 23 Date of Last Pap Smear completed Not Available Health Note 04/03/2024 15:32:52 02/17/20 21 Colonoscopy completed [facility] 04/08/2024 08:01:38 delivery completed Not Available Health Note 04/03/2024 15:32:50 Colonoscopy with biopsy completed Not Available Health Note 04/03/2024 15:32:50 Total hip arthroplasty completed Not Available Health Note 04/03/2024 15:32:50 Imaging Results None recorded. Procedure Notes None recorded. Medical Equipment None Reported. Allergies Allergen ID Allergen Name Allergen Category Reaction Reaction Severity Criticality Documentation Date Start Date Code Code System Note Provider Name and Address Organization Details Recorded Time 742700 iodine-so dium iodide medicatio n Not available Not available Not available 12/16/20232010 06761 UNK Not Available [facility] 21:45:31 Medications Name Sig Start Date Stop Date Status Note LastModified by Organization Details LastModified Time tramadol 50 mg tablet TAKE 1/2 TO 1 (ONE-HALF TO ONE) TABLET BY MOUTH EVERY 4 HOURS NEEDED FOR PAIN active Not Available Not Available No t Available timolol maleate 0.5 % eye drops INSTILL 1 DROP INTO EACH EYE TWICE DAILY active Not Available Not Available No t Available Vitals Date Recorded Body height Body mass index (BMI) Body weight Systolic blood pressure Diastolic blood pressure Provider Name and Address Organization Details Last Updated DateTime 04/08/2024 173.99 cm 21.2 kg/m2 35072.24 g 110 mm[Hg] 68 mm[Hg] [facility] 4 15:45:03 Date Recorded Body height Body mass index (BMI) Body weight Systolic blood pressure Diastolic blood pressure Provider Name and Address Organization Details Last Updated DateTime 04/21/2025 172.72 cm 21 kg/m2 87267.47 g 118 mm[Hg] 66 mm[Hg] [facility] 5 11:47:49 Social History Question Answer Notes LastModified by Organizat ion Details LastModified Time Do You Have An Advance Directive? No [email or web address] Information not available 04/03/2024 What Is Your Level Of Caffeine Consumption? Moderate 2 Tea Daily [email or web address] Information not available 04/17/2024 How Many Times Per Week Do You Exercise? 3-4 Times Per Week [email or web address] Information not available 04/03/2024 Do You Have A Medical Power Of Industrial Organizational Psychologist? No [email or web address] Information not available 04/03/2024 What Was The Date Of Your Most Recent Tobacco Screening? 04/08/2024 [email or web address] Information not available 04/03/2024 What Is Your Relationship Status? [email or web address] Information not available 04/03/2024 Sex: Unknown Functional Status Question Answer Note LastModified by Outlisten Details LastModified Time How many times per week do you consume alcohol? 1-2 times per week 1-2 beers per week [email or web address] Information not available 04/17/2024 Do you use any illicit or recreational drugs? No [email or web address] Information not available 04/03/2024 What is your level of alcohol consumption? Occasional [email or web address] Information not available 04/03/2024 Are you currently employed? No [email or web address] Information not available 04/03/2024 What is your occupation? Retired [email or web address] Information not available 04/03/2024 What is your exercise level? Moderate [email or web address] Information not available 04/03/2024 Mental Status None recorded. Family History Relationship Description Onset Age of this Age Resolved Age Notes LastModified by Organization Details LastModified Time Mother Arthritis [email or web address] Not available 04/03/2024 15:32:49 Mother Osteoporosis [email or web address] Not availa ble 04/03/2024 15:32:49 Medical History Condition Response Diabetes N Anxiety Disorder N Bleeding Disorder N Attention-deficit Hyperactivity Disorder N High Blood Pressure N Arthritis Y Hyperlipidemia N Cancer N Stroke N Thyroid Problems N Asthma N Depression N COPD N Anemia N Seizures N Heart Disease N Fibromyalgia N Osteoporosis Y Kidney Disease N Gynecological History Statement/Question Response Abnormal Pap N If Post Menopausal, Age at Menopause 56 Date of Last Mammogram 04/09/2023 Most Recent Bone Density 04/09/2023 Sexually Active? Y Hep C Screening Date of Last Pap Smear 04/01/2023 Age at Menarche 16 Current Control Method Menopause Colonoscopy 02/16/2021 Obstetrics History GPAL:G 5 P 5 0 0 5 Type Value Full Term 5 Living 5 Total 5 Past Encounters Encounter ID Performer Location Encounter Start Date Encounter Closed Date Diagnosis/Indication Diagnosis SNOMED-CT Code Diagnosis ICD10 Code Diagnosis Note [id number] Komal Priest MD [address] [facility] ([place]) [address] [facility] [place] [address] 04/08/2024 10:34:31 04/08/2024 11:44:56 Breast neoplasm screening status 067650293 Z12.31 Additional diagnosis detail: Other screening mammogram Routine gy necologic examination 064588746 Z01.419 Additional diagnosis detail: Women's annual routine gynecologi krystal examinatio n [id number] Komal Priest MD [address] [facility] ([place]) [address] [place] [address] [place] [address] 04/21/2025 10:36:46 04/21/2025 11:11:42 Screening mammography 67875358 Z12.31 Menopause 327444847 Z78. 0 Routine gy necologic examination 488743034 Z01.419 Additional diagnosis detail: Women's annual routine gynecologi krystal examinatio n Health Concerns Section Related Observation LastModified by Organization Detai ls LastModified Time None Recorded Concern Status LastModified by Organization Details LastModified Time None Recorded Advance Directives Directive N: Payers Insurance Date Sequence Insurance Name Policy Number Policy Herrera Covered Member ID Herrera Member ID Guarantor Name 04/21/2025 1 [employer] [id number] Dianne Rodriguez [id number] SOI Dianne Rodriguez Notes Date Note Type Note Provider Name and Address Organization Details Recorded Time 04/08/2024 text/html A G5, P5 present s for annual. She is postmenopausal. She had a negative/negative pap in 03/2021. No history of any abnormals. She had a mammogram 03/2023 at [facility]. She will repeat her mammogram there this year. She denies breast concerns. An order was given for now. She had a colonoscopy in 02/2021. She had a bone density in 03/2023. She is on Prolia. She is actually scheduled next week for a repeat bone density as last May she had a fall and a pelvic fracture that was nonsurgical. She declines hepatitis C screening. She is nonsmoker. Her PHQ is 0. Prior to her fracture, she was able to tour Jori.shahzad Priest MD [address] [place] [address], [phone], [facility] 04/17/2024 20:22:30 04/21/2025 text/html A 64-year-old 5 para 5, presents for annual. She is postmenopausal. She had a negative/negative Pap in 03/2021. No history of any abnormals, due in 2025. She had mammogram 03/2024 in [place]. We do not have those records. We will obtain them. An order was sent to have her mammogram done in [place] as she is now overdue. She had a colonoscopy in 02/2021, was given 10 years to be repeated in 02/2031. She had a bone density in 03/2023. She is due to repeat this. An order was given. She declines hepatitis C. She is a nonsmoker. Her HBOC is positive for a paternal aunt with breast cancer at 49 and younger. Her PHQ is 0. Komal Priest MD [address] [place] [address], [phone], [facility] 04/30/2025 00:19:27 OBGyn Episode No OBEpisode recorded.
--- OUTSIDE RECORDS SUMMARY | 2025-05-18 08:33 | XMS_ITS | Clinical Summary ---
Author Organization 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 Gender Identity Not on file Sexual Orientation Not on file Plan of Treatment Health Maintenance Due Date Last Done Comments Cervical Cancer Screening Pa p Smear (Age 30 to 64) Every 3 Years 1961 Colorectal Cancer Screening Colonoscopy (10 Years) 1961 Annual Physical 1964 Hepatitis C 1979 DTaP, Tdap and Td Vaccines ( 1 - Tdap) 1980 Cervical Cancer Screening Pa p with HPV Testing (Age 30 to 64) Every 5 Years 1991 Cervical Cancer Screening with HPV 1991 Pneumococcal Vaccine: 50+ Ye ars (1 of 1 - PCV) 2011 Zoster Vaccines (1 of 2) 2011 Mammogram Screening 06/20/2020 06/20/2018 COVID-19 Vaccine ( - 2023-2 5 season) 2024 RSV Immunization or 60+ Years (1 - 1-dose 75+ series) 2036 Meningococcal B Vaccine Aged Out No l onger eligible based on patient's age to complete this topic Meningococcal Vaccine Aged Out No bayron faustino eligible based on patient's age to complete this topic RSV Immunizations Under 20 Months Aged Out No longer eligible based on patient's age to complete this topic Procedures Procedure Name Priority Date/Time Associated Diagnosis Comments MG SCREENING W JAMA PURVI DIGI Routine 06/20/2018 9:28 AM CDT Screening breast examination from Last 3 Months or Most Recently Relevant to Health Maintenance Results * MG SCREENING W JAAM PURVI DIGI (06/20/2018 9:28 AM CDT) Anatomical Region Laterality Modality Breast Bilateral Mammography 06/20/2018 9:58 AM CDT Impressions 06/20/2018 9:59 AM CDT IMPRESSION: No suspicious interval change. RECOMMENDATION: In the absence of symptoms, routine bilateral screening mammogram in one year. ASSESSMENT: ACR BI-RADS Category 2 - Benign. Interpreted By: Faustino Louis MD, 06/20/2018 9:58 AM Order Doctor: ALBARO Jolly 06/20/2018 9:59 AM CDT EXAMINATION: Digital bilateral screening mammogram CLINICAL HISTORY: 57 years old. Routine screening.] Small than the left. COMPARISON: Studies going back to 2007. TECHNIQUE: Digital screening mammography of both breasts was performed. Tomosynthesis acquisitions were performed. This study was read with the assistance of a computer-aided detection system. Tissue density: The breast tissue is heterogeneously dense, which may obscure small masses. FINDINGS: No suspicious masses, malignant appearing calcifications, skin thickening or other abnormalities are present. Few scattered benign calcifications. No suspicious change from the prior exam. From a mammographic standpoint, routine bilateral screening mammogram in one year would seem adequate. Procedure Note Faustino Louis MD - 06/20/2018 EXAMINATION: Digital bilateral screening mammogram CLINICAL HISTORY: 57 years old. Routine screening.] Small than the left. COMPARISON: Studies going back to 2007. TECHNIQUE: Digital screening mammography of both breasts was performed. Tomosynthesis acquisitions were performed. This study was read with the assistance of a computer-aided detection system. Tissue density: The breast tissue is heterogeneously dense, which may obscure small masses. FINDINGS: No suspicious masses, malignant appearing calcifications, skin thickening or other abnormalities are present. Few scattered benign calcifications. No suspicious change from the prior exam. From a mammographic standpoint, routine bilateral screening mammogram in oneyear would seem adequate. IMPRESSION: No suspicious interval change. RECOMMENDATION: In the absence of symptoms, routine bilateral screening mammogram in one year. ASSESSMENT: ACR BI-RADS Category 2 - Benign. Interpreted By: Faustino Louis MD, 06/20/2018 9:58 AM Order Doctor: ALBARO WILD us Albaro Widl MD MAMMO Final Result from Last 3 Months or Most Recently Relevant to Health Maintenance Insurance [employer] OPEN ACCESS [facility] Care Teams Refrigerator Repairman Relationship Specialty Start Date End Date Regine Mcconnell MD [address] [place] [address] PCP - General INTERNAL MEDICINE 05/28/18
--- OUTSIDE RECORDS SUMMARY | 2025-05-18 08:33 | XMS_ITS | Data Portability ---
Author Organization [place] - [facility], Main Office Address [address] [place] [address] Care Team Providers Care Home Energy Rater Name Role Phone MARY VALDEZ Primary Care Provider [phone] MARY VALDEZ Referring Provider Assessment Encounter Date Assessment Date Assessment LastModified by Organization Details LastModified Time 08/02/2023 08/02/2023 Patient returns. She is here for follow-up of her left pelvis fractures involving the inferior and superior pubic ramus as well as junction of anterior acetabulum and its superior pubic ramus. This occurred from a fall on 06/09/2023, 7 half weeks ago. 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 She has been using a walker and touch weight-bearing. She is comfortable during the day but at night time trying to fall asleep she notices pain and if she moves wrong in bed is awake her up. She quit the baby aspirin at the 6 week rome. We discussed signs and symptoms of DVT if she develops any swelling or leg she will let us know. If she turns wrong standing she will feel mild pain. She takes calcium plus vitamin-D a regular basis. I have suggested she take 1 tablet twice a day. I would recommend that we check a 25 hydroxy vitamin-D level and supplement this event is low. X-rays today of the left hip two views and AP pelvis demonstrate good early callus at junction of superior pubic ramus and body of pubis no significant callus at fracture line at the medial wall the acetabulum. minimal callus at inferior pubic ramus fracture. Patient is forming bone slowly. Again I would recommend we check a 25 hydroxy vitamin-D level and consider supplementing this if it is low. With respect to her weight-bearing, I recommend that she put a little bit of weight on the leg now but no more than 50%. She has a walker for upper. Hers. I would like to give her walker with front wheels. The wheels that are sold separately did not fit on her walker so she was provided with a new walker with front wheels and back sliding pegs which I think will allow her to get around a little bit better and she will gradually advance her weight-bearing but no more than 50% weight-bearing. I will see her back in 4 weeks assess her progress with x-rays at that time. She will call us next week to request the results of the vitamin-D level. 20 minutes were spent total care this patient more than half the time spent in zujn-ce-tplj care Not available 08/04/2023 13:59:30 09/13/2023 09/13/2023 Patient returns. She is now approximately 3 months out after her fall sustaining periprosthetic pubic ramus and acetabular fractures about the left hip replacement. This happened on 06/09/2023. Since we last saw her she traveled in [place]. She used a walker full-time. She had minimal soreness overall. Patient does have a history of osteoporosis and has undergone treatment for this the past. She has been taking calcium plus vitamin-D. Her 25oh vitamin-D level in 08/02 was 52. On exam today she has no leg swelling. She does report that she had some mid thigh discomfort flattening her left leg to the x-ray table while supine today. I had her try to be weight-bearing as tolerated. She has been 50% weight-bearing to this point and she is able to put full weight on feels a little bit the discomfort but mild. Impression: Patient is 3 months out after her periprosthetic acetabular pubic ramus fractures without radiographic evidence of acetabular component loosening. She appears to have radiographic union of the medial wall acetabular fracture in the superior pubic ramus fracture. The inferior pubic ramus fracture is not yet united but the gap seems to be closing. I think we can allow her to gradually advance to weight-bearing as tolerated if she remains comfortable. I will see her back 1 month with new x-rays at that time. If she is asymptomatic x-rays suggest radiographic union we will offer her physical therapy as well for further strengthening. 20 minutes were spent total care this patient more than half the time spent in [id number]-[id number] care. Not available 09/15/2023 12:55:45 10/14/2023 10/14/2023 HPI: Patient returns. She is now 4 months out from left superior and inferior pubic ramus body fracture along with. Prostatic pelvic fracture at the acetabulum. She has been weight-bearing as tolerated for the last month. She has been using the walker. She is having no pain with weight-bearing. She have occasional twinge of soreness if she twists on it but other than that she has been comfortable. Physical exam: Patient is walking very well today with a walker. She is not limping. She states that she does not feel the leg is strong enough that she can actively flex the left hip in the seated position. She does have normal extension of the knee. Flexing the left hip passively she has no pain. Impression: Patient's left pubic body fracture and megan- Prostatic pelvic fracture both looked to be well healed on the x-rays. Patient is having no symptoms at this point for 2 with any weight-bearing. We will allow her to wean off the walker at this point to a cane. I talked about setting up formal physical therapy to work on strengthening the leg and she would definitely like do this we will set this up for. She may increase activities as tolerated. See her back in a month to make sure she continues do well and is getting her strength back. No x-rays at time. [email or web address] Not available 10/14/2023 16:24:39 11/13/2023 11/13/2023 patient returns. She is now 5 months 1 week after her Megan prosthetic left pubic rami fracture with extension into the anterior acetabulum. She has a revision total hip replacement there with a revision oversized cup. The medial wall is therefore thin. Her injury was on June 09. She came in today walking without the cane is trying to get off the cane. She complains that she gets soreness mainly in the lateral anterolateral hip diffusely if she walks too far even with a cane. She has been going to physical therapy for the past month has noted dramatic improvement in the muscular control around her left hip. Overall she is feeling much better than she was a month ago. On exam today she has full range of motion of hip with soreness at extremes of movement. She is unable to perform a Stinchfield maneuver due to weakness and soreness over the and for your lateral lateral hip area. In the side-lying position she has 4-5 abduction strength no tenderness over greater trochanter. She walks well without obvious limp office without the cane. Impression: Patient is gradually improving. The pubic rami fractures look certainly well healed. The acetabular fracture between the superior pubic ramus and the implant that extends to the medial wall appears to be healing uneventfully and the x-rays show no evidence of deep bonding from the acetabular shell from the superior ilium which is the crucial fixation point. I would recommend that we continue gradually increasing her active strength and mobility within her comfort levels and I would like her to continue using the cane in right hand until it is pain-free for her to walk. I will see her back in 1 month with new x-rays left hip and pelvis at that time. If anything changes she will call. With respect to walking distance, I would recommend that she avoid walking distances that cause her to feel pain but rather to walk with a cane within her comfort levels. 20 minutes were spent total care this patient more than half the time spent in [id number]-qh-[id number] care Not available 11/13/2023 11:49:06 12/13/2023 12/13/2023 Impression: Healed acetabular periprosthetic fracture healed pubic ramus fractures. X-rays show significant maturation of the medial wall acetabular fracture today and I feel it looks completely healed. The pubic ramus fractures are healed. She feels she is making progress with physical therapy and plans to go once a week for the next 4 weeks. She finds that the side lying lateral leg raises are getting he is here. She still has some weakness in abduction. It is possible that she has some tearing of the abductor tendon. She has a negative Trendelenburg test. She is improving. She will continue with her home exercises. I think I can see her back now on an as-needed basis as she feels very comfortable and plans to start going to the gym again. If she has worsening symptoms though at some point in the future I am happy to see her back at any time. 20 minutes were spent total care this patient more than half the time spent in fmlj-bx-chws care. Not available 12/13/2023 12:57:45 Plan of Treatment Reminders Order Date Submit Date Provider Last Modified By Organization Details Last Modified Time Details Appointments None recorded. Lab vitamin D, 25-hydroxy, total, serum - fax results to 2022 023 QUIANA Not available 17:08:38 Referral None recorded. Procedures None recorded. Surgeries None recorded. Imaging XR, hip + pelvis, unilateral, 2 or 3 view 2023 024 [facility] [place], [address], [place], [address], 4 15:31:19 XR, hip + pelvis, unilateral 2022 023 [facility] [place], [address], [place], [address], 3 20:16:41 XR, hip + pelvis, bilateral 2022 023 [email or web address] [facility] [place], [address], [place], [address], 3 16:30:06 XR, hip + pelvis, unilateral, 2 or 3 view 2022 023 [email or web address] [facility] [place], [address], [place], [address], 3 11:00:58 XR, pelvis 2022 023 [email or web address] [facility] [place], [address], [place], [address], 3 09:29:21 Medication Orders None recorded. Patient TargetsNo targets recorded. Patient InstructionsNo instructions recorded. Reason for Referral None Reported. Results Created Date Observation Date Name Description Value Unit Range Abnormal Flag Note LastModifiedBy Organization Detail LastModifiedTime 07/12/20 23 XR, hip + pelvi s, unila teral No observ ation record ed. [email or web address] [facility] [place] [address], [place], [address], 07/12/2023 11:40:02 08/02/20 23 XR, pelvi s No observ ation record ed. [facility] [place] [address], [place], [address], 08/04/2023 14:00:30 09/13/20 23 XR, hip + pelvi s, unila teral , 2 or 3 view No observ ation record ed. [facility] [place] [address], [place], [address], 09/15/2023 12:52:57 10/14/20 23 XR, hip + pelvi s, bilat eral No observ ation record ed. [email or web address] [facility] [place] [address], [place], [address], 10/14/2023 16:22:25 11/13/20 23 XR, hip + pelvi s, unila teral No observ ation record ed. [facility] [place] [address], [place], [address], 11/13/2023 11:45:27 12/13/19 24 XR, hip + pelvi s, unila teral , 2 or 3 view No observ ation record ed. [email or web address] [facility] [place] [address], [place], [address], 12/13/2023 12:14:16 Result Notes None recorded. Problems Name Problem SNOMED Code Status Onset Date Resolution Date Notes Provider Name and Address Organization Details Recorded Time Pain of left hip joint 9013487609330 00 Active 2022 CHRISTIANO Jackman, [facility] 3 12:25:56 Pain of left knee joint 6971124434290 07 Active 2022 Whitney Barrios CMA null, [facility] 3 13:08:24 Fracture of pubic rami 21733882 Active 2022 CHRISTIANO Jackman, [facility] 3 11:40:58 Vitamin D deficiency 75431242 Active 2022 Whitney Barrios CMA null, [facility] 3 12:59:49 Problem Notes None recorded. Procedures Surgical History Date Name Laterality Status Provider Name and Address Organization Details Recorded Time section completed Hui bosch Laila [facility] 06/14/2023 12:35:55 total replacement of hip completed CHRISTIANO Jackman [facility] 06/14/2023 12:36:05 Imaging Results None recorded. Procedure Notes None recorded. Medical Equipment None Reported. Allergies Allergen ID Allergen Name Allergen Category Reaction Reaction Severity Criticality Documentation Date Start Date Code Code System Note Provider Name and Address Organization Details Recorded Time 41161 iodine medicatio n Not available Not available Not available 06/14/2023 5933 RxNorm CHRISTIANO Jackman, [facility] 3 12:32:47 Medications Name Sig Start Date Stop Date Status Note LastModified by Organization Details LastModified Time tramadol 50 mg tablet Take by oral route for 14 days. 10/14 completed Not Available Not Available Not Available timolol maleate 0.5 % eye drops INSTILL 1 DROP INTO EACH EYE TWICE DAILY active Not Available Not Available No t Available calcium active Not Available Not Avail able Not Available flaxseed oil active Not Available Not Available Not Available Zyrtec active Not Available Not Availa ble Not Available Osteo Bi-Flex active Not Available Not Available Not Available One-A-Day Women's 50 Plus active Not Available Not Available Not Available Emergen-C active Not Available Not Sarahi ilable Not Available aspirin 81 mg capsule Take 1 capsule twice a day by oral route. 08/02 completed Not Available Not Available Not Available Vitals None Recorded Social History None recorded. Functional Status Question Answer Note LastModified by Organization D etails LastModified Time What is your level of alcohol consumption? None [email or web address] Information not available 06/14/2023 Mental Status None recorded. Family History Nothing Reported. Medical History Condition Response ARTHRITIS Y OSTEOPOROSIS Y Gynecological HistoryNo gynecological history recorded. Obstetrics History GPAL:G 0 P 0 0 0 0 Past Encounters Encounter ID Performer Location Encounter Start Date Encounter Closed Date Diagnosis/Indication Diagnosis SNOMED-CT Code Diagnosis ICD10 Code Diagnosis Note [id number] Praful Clements MD [facility] [place] [address] [place] [address] 06/14/2023 12:11:02 06/17/2023 09:54:25 Pain of left hip joint 3678392398 13560 M25.[id number] [facility] [place] [address] [place] [address] 07/12/2023 10:54:21 07/12/2023 11:44:35 Pain of left hip joint 0690096047 99493 M25.881 [id number] Praful Clements MD [facility] [place] [address] [place] [address] 08/02/2023 11:35:39 08/05/2023 09:29:21 Fracture of pubic rami 53586378 S32.591D Vitamin D deficiency 347 43163 E55.9 [id number] [address] [facility] [place] [address] [place] [address] 09/13/2023 11:39:39 09/16/2023 11:00:58 Fracture of pubic rami 13494276 S32.591D [id number] Praful Clements MD [facility] [place] [address] [place] [address] 10/14/2023 15:37:21 10/14/2023 16:30:06 Fracture of pubic rami 23610068 S32.591D [id number] Praful Clements MD [facility] [place] [address] [place] [address] 11/13/2023 11:18:27 11/13/2023 11:49:52 Fracture of pubic rami 63923582 S32.591D [id number] Praful Clements MD [facility] [place] [address] [place] [address] 12/13/2023 11:50:54 12/13/2023 14:25:39 Fracture of pubic rami 94127410 S32.591D Health Concerns Section Related Observation LastModified by Organization Detai ls LastModified Time None Recorded Concern Status LastModified by Organization Details LastModified Time None Recorded Advance Directives Directive None Recorded Payers Insurance Date Sequence Insurance Name Policy Number Policy Herrera Covered Member ID Herrera Member ID Guarantor Name 12/18/2023 1 [employer] - OPEN ACCESS [id number] Dianne Rodriguez [id number] OI Dianne Rodriguez 06/18/2023 1 [employer] - [facility] [employer]AN Dianne Rodriguez [id number] OI Dianne Rodriguez Notes Date Note Type Note Provider Name and Address Organization Details Recorded Time 12/13/2023 text/html Patient returns. She is now 6 months after periprosthetic acetabular and pubic ramus fractures left Pelvis. She has a total hip replacement on that side with a revision Jumbo cup. She has been going to physical therapy work on strengthening. Earlier this week she was overdoing it more she feels and she was getting more soreness in the iliac region of her left hip. It is much better today. Praful Clements MD [address] [place] [address], [place] [address], [place], [address], [facility] [employer] 12/13/2023 12:58:01 OBGyn Episode No OBEpisode recorded.
--- OUTSIDE RECORDS SUMMARY | 2025-05-18 08:33 | XMS_ITS | Continuity of Care Document ---
Author Organization [facility], [facility] Address [address] [place] [address] Phone Care Team Providers Care Commercial Credit Head Name Role Phone Shimon Deras MD Unavailable Unavailable Procedures Procedure Date EYE EXAM ESTABLISHED PATIENT, MEDICAL Au SCAN IMAGING, BI-LATERAL EYE EXAM ESTABLISHED PAT, MEDICAL Advance Directives Directive Yes / No Effective Date File Name No Information Encounters Encounter Description Practice Location Reason(s) For Visit Diagnoses Date Provider Providers Copied on Encounter [facility], [address] [place] [address], [id number], tel:[phone] [facility] Augusta Robins. [address] [place] [address], [id number], . tel:[phone] Referring Provider: Shimon Ulloa, [address] [place] [address], [id number]. tel:[phone] [facility], [address] [place] [address], [id number], tel:[phone] [facility] No Information Augusta Robins. [address] [place] [address], [id number], . tel:[phone] Family History Family Member Type Diagnosis Age At Onset No Information Payers Payer name Insurance type Covered libertarian ID Authoriza tion(s) [employer] [facility] CI [id number] Social History Type Description Quantity Date Captured Comments Sex Female Smoking Status No Information Chief Complaint And Reason For Visit No Information Reason For Referral Reason For Referral No Information History Of Present Illness Encounter Date Complaint History Of Prese nt Illness No Information Functional Status Date Functional Assessmen t No Information Instructions Date Instruction Additional Infor mation No Information Assessments Type Assessment Date No Information Patient Care Teams Name Effective Dates (start - stop) Status Members No Information
[2025-05-18 08:54] LABS: Hematocrit 44.5 % (35.0-49.0); Hemoglobin 14.5 g/dL (12.0-15.0); Immature Granulocyte Percent A 0.3 % (0.0-0.0); Lymphocytes Absolute Auto 1.86 K/mm3 (1.10-4.50); Mean Corpuscular HGB Conc 32.6 g/dL (32-36); Mean Corpuscular Hemoglobin 30.0 pg (27.0-31.0); Mean Corpuscular Volume 92.1 fL (78.0-102.0); Nucleated Red Blood Cells Absolute Auto 0.00 K/mm3 (0.00-0.00); Nucleated Red Blood Cells Perc 0.0 % (0-0.0); Platelet Count Result 229 K/mm3 (150-420); Red Blood Count 4.83 M/mm3 (4.20-5.40); White Blood Count 6.7 K/mm3 (4.8-10.8)
[2025-05-18 08:59] LABS: Add Urine Microscopic? NO; Appearance Urine Clear (Clear); Glucose Urine UA Negative (Negative); Leukocyte Esterase Ur Negative (Negative); Nitrate Urine Negative (Negative); Specific Grav Ur 1.020 (1.010-1.020)
[2025-05-18 09:14] LABS: Alanine Aminotransferase 20 U/L (6-35); Albumin Level 4.6 g/dL (3.5-5.1); Alkaline Phosphatase 52 U/L (38-126); Anion Gap 6 mmol/L (4-12); Aspartate Amino Transferase 31 U/L (14-36); Bilirubin,Total 0.6 mg/dL (0.2-1.3); Blood Urea Nitrogen 15 mg/dL (7-17); Calcium 9.1 mg/dL (8.4-10.2); Carbon Dioxide 30 mmol/L (22-30); Chloride 106 mmol/L (98-107); Cholesterol 212 mg/dL (0-200); Estimated Glomerular Filt Rate > 60; Glucose 61 mg/dL (65-110); HDL Direct 66 mg/dL; Osmolality Calculated 292 mOsm/kg (285-295); Potassium 4.0 mmol/L (3.4-5.0); Sodium 142 mmol/L (137-145); Total Protein 7.2 g/dL (6.3-8.2); Triglycerides 76 mg/dL (<150)
[2025-05-18 09:31] LABS: Free T4 Free Thyroxine. 1.01 ng/dL (0.78-2.19)
[2025-05-18 09:45] LABS: Thyroid Stimulating Hormone 0.660 uIU/mL (0.465-4.680)
== END 2025-05-18 08:27 | disposition home or self-care (01) ==
PROVIDERS: PCP Internal Medicine
DX: Z00.00 Encounter for general adult medical examination without abnormal findings (principal); Z12.31 Encounter for screening mammogram for malignant neoplasm of breast; M81.0 Age-related osteoporosis without current pathological fracture
CPT/HCPCS: 36415; 77063; 77067; 80053; 80061; 81003; 82306; 84439; 84443; 85025

== ENCOUNTER 2025-06-22 08:22 | Outpatient (CLI) | payer OTHER, SELFPAY ==
--- NOTE | ~2025-06-22 | DEXA_ITS ---
Bone Density Report Name: IVET UMAÑA Age: 64 Sex: Female Ethnicity: White Date of : 1960 Indication: osteopenia; height loss; Referring Provider: Regine Mcconnell Study: Bone densitometry was performed. Exam Date: June 22, 2025 Accession number: [id number] Bone Density: Region BMD T-score Z-score Classification AP Spine(L1-L4) 0.823 -2.0 -0.4 Osteopenia Femoral Neck (Right) 0.546 -2.7 -1.3 Osteoporosis Total Hip (Right) 0.893 -0.4 0.8 Normal World Health Organization criteria for BMD impression classify patients as: Normal (T-score at or above -1.0), Osteopenia (T-score between -1.0 and -2.5), or Osteoporosis (T-score at or below -2.5). 10-year Fracture Risk: FRAX not reported because: Some T-score for Spine Total or Hip Total or Femoral Neck at or below -2.5 Previous Exams: Region Exam Age BMD T-score BMD Change BMD Change Date g/cm2 vs Baseline vs Previous AP Spine (L1-L4) 06/22/2025 64 0.823 -2.0 -0.008 (-1.0%) -0.008 (-1.0%) 04/17/2024 63 0.831 -2.0 Total Hip(Right) 06/22/2025 64 0.893 -0.4 0.136 (18.0%)# 0.136 (18.0%)# 04/17/2024 63 0.756 -1.5 *Denotes significance at 95% confidence level, LSC for AP Spine = 0.022 g/cm2, LSC for Total Hip = 0.027 g/cm2 # Denotes dissimilar scan types or analysis methods Clinical Information Provided by Patient: Patient maximum height was 69 Menopause Age: 56 Drinks caffeinated beverages Onset of menses at age 16 Number of children 5 Impression: The patient has osteoporosis, based on the Right Femoral Neck T-score. No significant bone loss was observed. Discussion: INCREASED RISK OF FRACTURE. BONE DENSITY IS UNDESIRABLY LOW AT ONE OR MORE SKELETAL SITES, CONSISTENT WITH POSTMENOPAUSAL OSTEOPOROSIS. This patient's lowest T-score meets the World Health Organization's (WHO) criteria for osteoporosis at one or more sites (T-score -2.5 or below). In untreated patients, the risk of osteoporotic fracture increases approximately two-fold for each 1.0 SD decrease in T-score. Low bone density is not the only risk factor for fracture; also consider factors such as patient's age, frailty or poor health, risk of falling, risk of injury, previous osteoporotic fracture, family history of osteoporosis, cigarette smoking, low body weight, etc. Not everyone with low bone mineral density has osteoporosis; osteomalacia and other metabolic bone disorders should also be considered. Patients who have osteoporosis should be evaluated for specific diseases and conditions (secondary causes) that may cause or contribute to bone loss. The [place] Association of Clinical Endocrinologists (AACE) and National Osteoporosis Foundation (NOF) recommend pharmacologic intervention for all postmenopausal women whose T-score is in this range. The patient should follow a healthful lifestyle (good nutrition with adequate calcium and vitamin D, and appropriate weight-bearing exercise). Follow-Up: Consider a repeat BMD and Vertebral Fracture Assessment (VFA) exam in 2 years or sooner if medically necessary, to reassess this patient's status. Reported by: IVAN on 06/22/2025 10:06:00 AM. Reviewed, dictated and finalized at location A.
--- OUTSIDE RECORDS SUMMARY | 2025-06-22 08:26 | XMS_ITS | Encounter Summary ---
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
--- OUTSIDE RECORDS SUMMARY | 2025-06-22 08:26 | XMS_ITS | Continuity of Care Document ---
Author Organization [facility], [facility] Address [address] [place] [phone] Phone Care Team Providers Care Supervisor Gluing Name Role Phone Shimon Deras MD Unavailable Unavailable Procedures Procedure Date EYE EXAM ESTABLISHED PATIENT, MEDICAL Au SCAN IMAGING, BI-LATERAL EYE EXAM ESTABLISHED PAT, MEDICAL Advance Directives Directive Yes / No Effective Date File Name No Information Encounters Encounter Description Practice Location Reason(s) For Visit Diagnoses Date Provider Providers Copied on Encounter [facility], [address] [place] [address], [id number], tel:[phone] [facility] Augusta Robins. [address] [place] [address], [id number], . tel:[phone] Referring Provider: Shimon Ulloa, [address] [place] [address], [id number]. tel:[phone] [facility], [address] [place] [address], [id number], tel:[phone] [facility] No Information Augusta Robins. [address] [place] [address], [id number], . tel:[phone] Family History Family Member Type Diagnosis Age At Onset No Information Payers Payer name Insurance type Covered constitution party ID Authoriza tion(s) [employer] [facility] CI [id number] Social History Type Description Quantity Date Captured [...]
--- OUTSIDE RECORDS SUMMARY | 2025-06-22 08:26 | XMS_ITS | Clinical Summary ---
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
== END 2025-06-22 08:23 | disposition home or self-care (01) ==
LOC: CHSIMG 08:23
PROVIDERS: PCP Internal Medicine; Visit Provider Internal Medicine
DX: M81.0 Age-related osteoporosis without current pathological fracture (principal); M85.89 Other specified disorders of bone density and structure, multiple sites
CPT/HCPCS: 77080

== ENCOUNTER 2025-06-29 08:23 | Outpatient (CLI) | payer OTHER, SELFPAY ==
--- OUTSIDE RECORDS SUMMARY | 2025-06-29 08:34 | XMS_ITS | Continuity of Care Document ---
Author Organization [facility], [facility] Address [address] [place] [phone] Phone Care Team Providers Care Refrigeration Engineer Name Role Phone Shimon Deras MD Unavailable Unavailable Procedures Procedure Date EYE EXAM ESTABLISHED PATIENT, MEDICAL Au SCAN IMAGING, BI-LATERAL EYE EXAM ESTABLISHED PAT, MEDICAL Advance Directives Directive Yes / No Effective Date File Name No Information Encounters Encounter Description Practice Location Reason(s) For Visit Diagnoses Date Provider Providers Copied on Encounter [facility], [address] [place] [address], [id number], tel:[phone] [facility] Information Augusta Robins. [address] [place] [address], [id number], . tel:[phone] Referring Provider: Shimon Ulloa, [address] [place] [address], [id number]. tel:[phone] [facility], [address] [place] [address], [id number], tel:[phone] [facility] No Information Augusta Robins. [address] [place] [address], [id number], . tel:[phone] Family History Family Member Type Diagnosis Age At Onset No Information Payers Payer name Insurance type Covered libertarian ID Authoriza tion(s) [employer] [facility] CI [id number] Social History Type Description Quantity Date Captured [...]
[2025-06-29 08:35] VITALS: BP 103/69; PULSE 72; RESP 14; TEMP 36.5; O2SAT 99; BMI 20.8
[2025-06-29] MEDS: ZOLEDRONIC ACID 5 MG/100 ML 100 ML 400 MG IVPB (09:00)
--- NOTE | 2025-06-29 09:22 | PC.NURSE ---
Tolerated Yearly Reclast infusion well. No cbc needed reviewed, but had to say yes to bypass MAR.
== END 2025-06-29 08:24 | disposition home or self-care (01) ==
PROVIDERS: PCP Internal Medicine; Visit Provider Internal Medicine
DX: M81.0 Age-related osteoporosis without current pathological fracture (principal)
CPT/HCPCS: 96374; J3489